=== PATIENT | female | born 1995 | race Caucasian/White ===

== ENCOUNTER 2024-05-13 13:03 | Outpatient (CLI) | payer OTHER | END 2024-05-13 13:04 | disposition home or self-care (01) | LOC: CSHULT 13:03 | PROVIDERS: ATTEND Obstetrics & Gynecology Maternal & Fetal Medicine | DX: O09.92 Supervision of high risk pregnancy, unspecified, second trimester (principal); Z87.09 Personal history of other diseases of the respiratory system | CPT/HCPCS: 71046; 93306 ==

== ENCOUNTER 2024-06-12 15:43 | Day surgery (SDC) | payer OTHER ==
[2024-06-12 16:10] VITALS: BMI 29.9
== END 2024-06-12 18:25 | disposition home or self-care (01) ==
LOC: CSHLD/OP 15:43
PROVIDERS: ATTEND Family Medicine
DX: O22.42 Hemorrhoids in pregnancy, second trimester (principal); O99.012 Anemia complicating pregnancy, second trimester; Z3A.26 26 weeks gestation of pregnancy; Z79.899 Other long term (current) drug therapy
CPT/HCPCS: 99281

== ENCOUNTER 2024-06-26 08:21 | Emergency (ER) | payer OTHER ==
[2024-06-26 09:24] LABS: #Basophils 0.02 10x3/uL (0.0-0.2); #Eosinophils 0.09 10x3/uL (0.0-0.5); #Monocytes 0.94 10x3/uL (0.0-1.1); #Neutrophils 7.18 10x3/uL (1.5-8.4); %Basophils 0.2 % (0.0-2.0); %Eosinophils 0.9 % (0.0-6.0); %Lymphocytes 13.9 % (18.0-47.0); %Monocytes 9.7 % (0.0-10.0); %Neutrophils 73.8 % (40.0-75.0); Hematocrit 29.1 % (34.9-44.5); Hemoglobin 9.6 g/dL (12.0-15.5); Mean Corpuscular Hemoglobin 30.1 pg (27.0-33.0); Mean Corpuscular Volume 91.2 fL (81.6-98.3); Mean Platelet Volume 10.3 fL (7.4-10.4); Platelet Count 258 10x3/uL (150-450); RBC Distribution Width 13.8 % (11.5-14.5); Red Blood Cell (RBC) Count 3.19 10x6/uL (3.90-5.03); White Blood Cell (WBC) Count 9.7 10x3/uL (3.5-10.5)
[2024-06-26 09:39] LABS: INR-International Normal Ratio 0.9; PTT 25.3 sec (22.0-33.0); Prothrombin Time 10.1 sec (9.5-12.1)
[2024-06-26 09:40] LABS: ALT (SGPT) 10 U/L (8-55); AST (SGOT) 14 U/L (5-34); Albumin 2.9 g/dL (3.5-5.0); Alkaline Phosphatase 74 U/L (40-110); Anion Gap 15 mmol/L (10-20); BUN (Urea Nitrogen) 5 mg/dL (7.0-18.7); Bilirubin, Total 0.2 mg/dL (0.2-1.2); Calc. Creatinine Clearance 0 mL/min (70-130); Calcium 9.2 mg/dL (7.8-10.44); Carbon Dioxide 18 mmol/L (22-29); Chloride 109 mmol/L (98-107); Estimated GFR 128; Globulin 3.7 g/dL (2.4-3.5); Glucose 87 mg/dL (70-105); Magnesium 1.8 mg/dL (1.6-2.6); Potassium 3.9 mmol/L (3.5-5.1); Protein, Total 6.6 g/dL (6.0-8.3); Sodium 138 mmol/L (136-145)
== END 2024-06-26 10:57 | disposition home or self-care (01) ==
LOC: CSHERS 08:21
DX: O99.891 Other specified diseases and conditions complicating pregnancy (principal); R55 Syncope and collapse; Z3A.28 28 weeks gestation of pregnancy
CPT/HCPCS: 36415; 80053; 83735; 83880; 84443; 85025; 85610; 85730; 86850; 86900; 86901; 87428; 93005

== ENCOUNTER 2024-08-01 17:35 | Day surgery (SDC) | payer OTHER ==
[2024-08-01] MEDS ORDERED: hydrALAZINE 20 MG/ML VIAL SLOW IVP PRN (18:10)
[2024-08-01 18:33] LABS: Bilirubin Neg (Negative); Blood, Urine Negative (Negative); Glucose, Urine (Dipstick) 250 mg/dL (Negative); Ketone, Urine Negative (Negative); Leukocyte Negative (Negative); Nitrite Negative (Negative); Protein, Urine (Dipstick) 15 mg/dl (Neg-Trace); Urobilinogen Normal mg/dL (Less than 2)
[2024-08-01 18:34] LABS: Clarity Hazy (Clear)
[2024-08-01 18:35] VITALS: BMI 32.4
[2024-08-01] MEDS: Acetaminophen 500 MG TAB PO SCH (18:44)
[2024-08-01 18:53] LABS: CAUTI Indications for Culture Pregnancy; RBC/HPF 0-3 HPF (0-3)
[2024-08-01 18:55] LABS: Bacteria/HPF 2+ HPF (None Seen)
[2024-08-01 18:56] LABS: Mucous/LPF 1+ LPF (<2+)
[2024-08-01 18:57] LABS: Urine Culture Reflex Yes Yes
[2024-08-01 19:26] LABS: #Basophils Less than 0.03 10x3/uL (0.0-0.2); #Eosinophils 0.09 10x3/uL (0.0-0.5); #Monocytes 1.01 10x3/uL (0.0-1.1); #Neutrophils 7.02 10x3/uL (1.5-8.4); %Basophils 0.2 % (0.0-2.0); %Eosinophils 0.9 % (0.0-6.0); %Lymphocytes 18.4 % (18.0-47.0); %Neutrophils 69.2 % (40.0-75.0); Hematocrit 35.8 % (34.9-44.5); Hemoglobin 11.7 g/dL (12.0-15.5); Mean Corpuscular HGB CONC 32.7 g/dL (32.0-36.0); Mean Corpuscular Hemoglobin 30.5 pg (27.0-33.0); Mean Corpuscular Volume 93.5 fL (81.6-98.3); Mean Platelet Volume 10.8 fL (7.4-10.4); Platelet Count 239 10x3/uL (150-450); RBC Distribution Width 16.9 % (11.5-14.5); Red Blood Cell (RBC) Count 3.83 10x6/uL (3.90-5.03); White Blood Cell (WBC) Count 10.14 10x3/uL (3.5-10.5)
[2024-08-01 19:35] LABS: Creatinine, Urine 62.69 mg/dL (16.00-327.00)
[2024-08-01] MEDS: Morphine 4 MG/ML VIAL SLOW IVP SCH (19:35)
[2024-08-01 19:43] LABS: ALT (SGPT) 8 U/L (Less than 34); AST (SGOT) 17 U/L (11-34); Albumin 3.4 g/dL (3.1-4.5); Alkaline Phosphatase 94 U/L (40-110); Anion Gap 16 mmol/L (10-20); BUN (Urea Nitrogen) 5 mg/dL (7.0-18.7); Bilirubin, Total 0.2 mg/dL (0.3-1.2); Calc. Creatinine Clearance 202 mL/min (70-130); Calcium 9.4 mg/dL (7.8-10.44); Carbon Dioxide 19 mmol/L (22-29); Chloride 107 mmol/L (98-107); Estimated GFR 130; Globulin 3.9 g/dL (2.4-3.5); Glucose 71 mg/dL (70-105); Potassium 4.2 mmol/L (3.5-5.1); Protein, Total 7.3 g/dL (6.0-8.3); Sodium 138 mmol/L (136-145)
[2024-08-01 20:44] LABS: Bilirubin Neg (Negative); Blood, Urine Negative (Negative); Clarity Clear (Clear); Glucose, Urine (Dipstick) Normal (Negative); Ketone, Urine Negative (Negative); Leukocyte Negative (Negative); Nitrite Negative (Negative); Protein, Urine (Dipstick) 15 mg/dl (Neg-Trace); Urobilinogen Normal mg/dL (Less than 2)
[2024-08-01] MEDS: Terbutaline Sulfate 1 MG/ML VIAL SC SCH (20:47)
[2024-08-01 20:53] LABS: Bacteria/HPF 1+ HPF (None Seen); CAUTI Indications for Culture Pregnancy; RBC/HPF None Seen HPF (0-3); Squamous Epithelial 0-3 HPF (0-3); WBC/HPF None Seen HPF (0-3)
== END 2024-08-01 22:25 | disposition home or self-care (01) ==
LOC: CSHLD/OP 17:35
PROVIDERS: ATTEND Family Medicine
DX: O23.43 Unspecified infection of urinary tract in pregnancy, third trimester (principal); O47.03 False labor before 37 completed weeks of gestation, third trimester; O36.8130 Decreased fetal movements, third trimester, not applicable or unspecified; O13.3 Gestational [pregnancy-induced] hypertension without significant proteinuria, third trimester; Z3A.33 33 weeks gestation of pregnancy; Z79.899 Other long term (current) drug therapy
CPT/HCPCS: 36415; 76817; 76819; 80053; 81001; 82570; 84156; 85025; 87086; 87480; 87510; 87660; J2270; J3105

== ENCOUNTER 2024-08-04 20:58 | Day surgery (SDC) | payer OTHER ==
[2024-08-04 21:26] VITALS: BMI 33.2
[2024-08-04] MEDS ORDERED: Acetaminophen 500 MG TAB PO SCH (22:15)
[2024-08-04 22:56] LABS: #Basophils 0.04 10x3/uL (0.0-0.2); #Eosinophils 0.08 10x3/uL (0.0-0.5); #Monocytes 0.86 10x3/uL (0.0-1.1); #Neutrophils 6.87 10x3/uL (1.5-8.4); %Basophils 0.4 % (0.0-2.0); %Eosinophils 0.8 % (0.0-6.0); %Lymphocytes 17.8 % (18.0-47.0); %Monocytes 8.9 % (0.0-10.0); %Neutrophils 71.1 % (40.0-75.0); Hematocrit 33.6 % (34.9-44.5); Hemoglobin 11.3 g/dL (12.0-15.5); Mean Corpuscular HGB CONC 33.6 g/dL (32.0-36.0); Mean Corpuscular Hemoglobin 31.9 pg (27.0-33.0); Mean Corpuscular Volume 94.9 fL (81.6-98.3); Mean Platelet Volume 11.1 fL (7.4-10.4); Platelet Count 233 10x3/uL (150-450); RBC Distribution Width 17.2 % (11.5-14.5); Red Blood Cell (RBC) Count 3.54 10x6/uL (3.90-5.03); White Blood Cell (WBC) Count 9.67 10x3/uL (3.5-10.5)
[2024-08-04 23:17] LABS: Creatinine, Urine 32.62 mg/dL (16.00-327.00); Protein, Urine Random Quant Less than 10 mg/dL (1-14)
[2024-08-04 23:19] LABS: ALT (SGPT) 10 U/L (Less than 34); AST (SGOT) 16 U/L (11-34); Albumin 3.2 g/dL (3.1-4.5); Alkaline Phosphatase 98 U/L (40-110); Anion Gap 16 mmol/L (10-20); BUN (Urea Nitrogen) 5 mg/dL (7.0-18.7); Bilirubin, Total 0.3 mg/dL (0.3-1.2); Calc. Creatinine Clearance 203 mL/min (70-130); Calcium 9.2 mg/dL (7.8-10.44); Carbon Dioxide 17 mmol/L (22-29); Chloride 109 mmol/L (98-107); Estimated GFR 129; Globulin 3.3 g/dL (2.4-3.5); Glucose 90 mg/dL (70-105); Protein, Total 6.5 g/dL (6.0-8.3); Sodium 138 mmol/L (136-145)
== END 2024-08-04 23:52 | disposition home or self-care (01) ==
LOC: CSHLD/OP 20:58
PROVIDERS: ATTEND Family Medicine
DX: O13.3 Gestational [pregnancy-induced] hypertension without significant proteinuria, third trimester (principal); O99.513 Diseases of the respiratory system complicating pregnancy, third trimester; J93.9 Pneumothorax, unspecified; O34.43 Maternal care for other abnormalities of cervix, third trimester; R87.610 Atypical squamous cells of undetermined significance on cytologic smear of cervix (ASC-US); Z98.890 Other specified postprocedural states; O23.43 Unspecified infection of urinary tract in pregnancy, third trimester; Z79.899 Other long term (current) drug therapy; Z3A.34 34 weeks gestation of pregnancy
CPT/HCPCS: 76819; 80053; 82570; 84156; 85025; 99284

== ENCOUNTER 2024-08-05 20:41 | Day surgery (SDC) | payer OTHER ==
[2024-08-05 21:21] VITALS: BMI 28.3
[2024-08-05] MEDS: Nitrofurantoin Monohyd/M-Cryst 100 MG CAP PO SCH (22:34)
[2024-08-06 15:48] LABS: Chlamydia by PCR, Vaginal Swab Not Detected (NotDetected); GC by PCR, Vaginal Swab Not Detected (NotDetected)
== END 2024-08-05 22:35 | disposition home or self-care (01) ==
LOC: CSHLD/OP 20:41
PROVIDERS: ATTEND Family Medicine
DX: O47.03 False labor before 37 completed weeks of gestation, third trimester (principal); O23.593 Infection of other part of genital tract in pregnancy, third trimester; N89.8 Other specified noninflammatory disorders of vagina; O99.513 Diseases of the respiratory system complicating pregnancy, third trimester; J93.9 Pneumothorax, unspecified; O99.013 Anemia complicating pregnancy, third trimester; O23.43 Unspecified infection of urinary tract in pregnancy, third trimester; O13.3 Gestational [pregnancy-induced] hypertension without significant proteinuria, third trimester; R87.610 Atypical squamous cells of undetermined significance on cytologic smear of cervix (ASC-US); Z79.899 Other long term (current) drug therapy; Z3A.34 34 weeks gestation of pregnancy; Z98.890 Other specified postprocedural states
CPT/HCPCS: 87480; 87491; 87510; 87591; 87660; 99284

== ENCOUNTER 2024-08-18 20:08 | Day surgery (SDC) | payer OTHER ==
[2024-08-18] MEDS ORDERED: hydrALAZINE 20 MG/ML VIAL SLOW IVP PRN (21:13)
[2024-08-18] MEDS ORDERED: Famotidine 20 MG TAB PO SCH (23:15)
[2024-08-18] MEDS ORDERED: Acetaminophen 500 MG TAB PO SCH (23:15)
[2024-08-18 23:31] LABS: #Basophils 0.04 10x3/uL (0.0-0.2); #Eosinophils 0.07 10x3/uL (0.0-0.5); #Monocytes 0.85 10x3/uL (0.0-1.1); #Neutrophils 7.89 10x3/uL (1.5-8.4); %Basophils 0.4 % (0.0-2.0); %Eosinophils 0.7 % (0.0-6.0); %Lymphocytes 15.1 % (18.0-47.0); %Neutrophils 74.7 % (40.0-75.0); Hematocrit 33.5 % (34.9-44.5); Hemoglobin 11.4 g/dL (12.0-15.5); Mean Corpuscular Hemoglobin 31.8 pg (27.0-33.0); Mean Corpuscular Volume 93.3 fL (81.6-98.3); Mean Platelet Volume 11.8 fL (7.4-10.4); Platelet Count 245 10x3/uL (150-450); RBC Distribution Width 15.9 % (11.5-14.5); Red Blood Cell (RBC) Count 3.59 10x6/uL (3.90-5.03); White Blood Cell (WBC) Count 10.57 10x3/uL (3.5-10.5)
[2024-08-18 23:51] LABS: ALT (SGPT) 9 U/L (Less than 34); AST (SGOT) 24 U/L (11-34); Albumin 3.2 g/dL (3.1-4.5); Alkaline Phosphatase 103 U/L (40-110); Anion Gap 15 mmol/L (10-20); BUN (Urea Nitrogen) 6 mg/dL (7.0-18.7); Bilirubin, Total 0.3 mg/dL (0.3-1.2); Calc. Creatinine Clearance 0 mL/min (70-130); Calcium 9.2 mg/dL (7.8-10.44); Carbon Dioxide 18 mmol/L (22-29); Chloride 108 mmol/L (98-107); Estimated GFR 128; Globulin 3.8 g/dL (2.4-3.5); Glucose 82 mg/dL (70-105); Potassium 3.9 mmol/L (3.5-5.1); Sodium 137 mmol/L (136-145)
[2024-08-19 00:54] LABS: Creatinine, Urine 37.71 mg/dL (16.00-327.00); Protein, Urine Random Quant Less than 10 mg/dL (1-14)
[2024-08-19] MEDS ORDERED: Famotidine 20 MG TAB PO SCH (09:00)
== END 2024-08-19 01:00 | disposition home or self-care (01) ==
LOC: CSHLD/OP 20:08
PROVIDERS: ATTEND Obstetrics & Gynecology
DX: O47.03 False labor before 37 completed weeks of gestation, third trimester (principal); O13.3 Gestational [pregnancy-induced] hypertension without significant proteinuria, third trimester; O99.613 Diseases of the digestive system complicating pregnancy, third trimester; K21.9 Gastro-esophageal reflux disease without esophagitis; Z3A.36 36 weeks gestation of pregnancy; Z79.899 Other long term (current) drug therapy
CPT/HCPCS: 80053; 82570; 84156; 85025; 99284

== ENCOUNTER 2025-03-11 17:38 | Emergency (ER) | payer OTHER ==
[2025-03-11 19:13] LABS: #Basophils 0.05 10x3/uL (0.0-0.2); #Eosinophils 0.30 10x3/uL (0.0-0.5); #Monocytes 0.92 10x3/uL (0.0-1.1); #Neutrophils 5.83 10x3/uL (1.5-8.4); %Basophils 0.5 % (0.0-2.0); %Eosinophils 3.2 % (0.0-6.0); %Lymphocytes 24.9 % (18.0-47.0); %Monocytes 9.7 % (0.0-10.0); %Neutrophils 61.4 % (40.0-75.0); Hematocrit 38.6 % (34.9-44.5); Hemoglobin 13.5 g/dL (12.0-15.5); Mean Corpuscular Hemoglobin 31.5 pg (27.0-33.0); Mean Corpuscular Volume 90.2 fL (81.6-98.3); Platelet Count 295 10x3/uL (150-450); Red Blood Cell (RBC) Count 4.28 10x6/uL (3.90-5.03); White Blood Cell (WBC) Count 9.49 10x3/uL (3.5-10.5)
[2025-03-11 19:23] LABS: ALT (SGPT) 32 U/L (Less than 34); AST (SGOT) 29 U/L (11-34); Albumin 4.4 g/dL (3.1-4.5); Alkaline Phosphatase 106 U/L (40-110); Anion Gap 15 mmol/L (10-20); BUN (Urea Nitrogen) 11 mg/dL (7.0-18.7); Bilirubin, Total 0.3 mg/dL (0.3-1.2); Calc. Creatinine Clearance 0 mL/min (70-130); Calcium 9.1 mg/dL (7.8-10.44); Carbon Dioxide 23 mmol/L (22-29); Chloride 105 mmol/L (98-107); Globulin 3.2 g/dL (2.4-3.5); Glucose 101 mg/dL (70-105); Potassium 3.6 mmol/L (3.5-5.1); Sodium 139 mmol/L (136-145)
[2025-03-11] MEDS ORDERED: Dexamethasone 10 MG/ML VIAL ONE (20:54)
== END 2025-03-11 21:12 | disposition home or self-care (01) ==
LOC: CSHERS 17:38
DX: B34.9 Viral infection, unspecified (principal); R53.83 Other fatigue; F17.200 Nicotine dependence, unspecified, uncomplicated
CPT/HCPCS: 36415; 71045; 80053; 85025; 87081; 87428; 87430; 96374; J1100